=== PATIENT | male | born 1945 | race Native Hawaiian/Other Pacific Islander ===

== ENCOUNTER 2016-05-22 12:17 | Outpatient (CLI) | payer OTHER | END 2016-05-22 22:09 | disposition home or self-care (01) | LOC: RAD 12:17 | DX: R76.11 Nonspecific reaction to tuberculin skin test without active tuberculosis (principal) ==

== ENCOUNTER 2019-09-26 11:02 | Outpatient (CLI) | payer OTHER ==
[2019-09-26 14:37] LABS: PLATELET COUNT 289 K/uL (142-355)
[2019-09-26 15:12] LABS: POTASSIUM 3.9 mmol/L (3.6-5.2)
== END 2019-09-26 23:07 | disposition home or self-care (01) ==
LOC: LAB 11:02
PROVIDERS: Internal Medicine
DX: U07.1 COVID-19 (principal); W19.XXXA Unspecified fall, initial encounter; J40 Bronchitis, not specified as acute or chronic
CPT/HCPCS: 36415; 80053; 80307; 81000; 85027

== ENCOUNTER 2019-10-02 12:16 | Outpatient (CLI) | payer OTHER | END 2019-10-02 18:59 | disposition home or self-care (01) | LOC: LAB 12:16 | DX: U07.1 COVID-19 (principal) | CPT/HCPCS: 36415; 86769 ==

== ENCOUNTER 2019-10-30 13:29 | Outpatient (CLI) | payer OTHER ==
[2019-10-30 13:38] LABS: PLATELET COUNT 238 K/uL (142-355)
[2019-10-30 13:43] LABS: POTASSIUM 4.8 mmol/L (3.6-5.2)
== END 2019-10-30 21:40 | disposition home or self-care (01) ==
LOC: LABW 13:29
PROVIDERS: Internal Medicine
DX: Z01.818 Encounter for other preprocedural examination (principal)
CPT/HCPCS: 36415; 80048; 85027